=== PATIENT | male | born 1975 | race Caucasian/White ===

== ENCOUNTER 2023-05-14 07:31 | Emergency (ER) | payer MEDICARE, SELFPAY ==
[2023-05-14 07:41] VITALS: BP 158/88; PULSE 120; O2SAT 95
--- NOTE | 2023-05-14 07:41 | ED.GENADULT ---
HPI - General Adult General Chief complaint: Psychiatric Symptoms Stated complaint: SEC 12 BY [employer] WALKING AROUND W/A [place] PER EMS Source: patient and EMS Mode of arrival: EMS Limitations: no limitations History of Present Illness HPI narrative: This is a 47-year-old male history of schizoaffective disorder presenting on a Section 12 with EMS and police, according to report from EMS and police patient was aggressive at home, he was walking around with a katana sword and hitting and punching things. He tells me he has just been depressed, he reports his around COVID time and since then he has been unwell. He lives at home with his 19 and 21-year-old son. He tells me feels safe at home no thoughts of hurting himself or other people. He states he was hospitalized as a young kid for psychiatric issues however never as an adult. Denies drugs, alcohol, tobacco. He denies taking any psychiatric meds. No medical complaints today. Related Data Allergies Allergy/AdvReac Type Severity Reaction Status Date / Time Unable to Assess Allergy Unverified 05/14/23 07:38 Review of Systems Review of Systems: Yes all other systems are reviewed and are negative [facility] Past Medical History Attestation statement: The following information was validated with the patient. Source: old records reviewed and nursing notes reviewed Social History Social History Smoked in Last 30 Days: No Use of substances other than those prescribed or required for medical reasons: No Advance Directives: No Physical Exam ED Vital Signs: Vital Signs - 24 hr 05/14/23 07:54 Temperature 98.2 F Pulse Rate 90 Respiratory Rate 18 Blood Pressure 133/83 Pulse Oximetry 99 Oxygen Delivery Method Room Air BMI result Body Mass Index 31.7 vss Appearance: Alert.? Oriented X3.? No acute distress.? Head: Normocephalic, atraumatic, no step-offs or deformities Eyes: Pupils equal, round and reactive to light.?? Neck: Normal inspection.? Neck supple.? CVS: Normal heart rate and rhythm.? Pulses normal.? Respiratory: No respiratory distress.? Breath sounds normal.? Abdomen: Soft and nontender.? Skin: Skin warm and dry.? Normal skin color.? Normal skin turgor.? Extremities: No lower extremity edema.? No calf ttp. 5/5 strength to bilateral upper and lower extremities Neuro: Oriented X 3.? No motor deficit.? No sensory deficit. CN 2-12 intact Course Reevaluation(s) Reevaluation #1: CBC unremarkable. Chemistry no acute findings requiring intervention. UA with no acute findings. HUERTA negative. Ethanol negative. At this time patient to be placed in observation to allow more time to be evaluated by behavioral health team. At time observation was started patient common cooperative no acute distress will continue to monitor Time: 09:23 Reevaluation #2: Patient will be an inpatient bedsearch Medical Decision Making Medical Decision Making [facility] Narrative: 0742 47-year-old male presents with aggressive behavior from home on a section 12 by police. Physical exam benign. History and physical exam concerning for schizoaffective disorder versus schizophrenia versus bipolar. Denies suicidal and homicidal ideation. Unlikely metabolic derangements. Plan at this time medical clearance evaluation by behavioral health team Differential Diagnosis Differential Diagnoses: The differential diagnosis associated with the presentation includes History and physical exam concerning for schizoaffective disorder versus schizophrenia versus bipolar. Denies suicidal and homicidal ideation. Unlikely metabolic derangements. Admission/Observation Consideration of admission/observation: Escalation of care including admission/observation considered Consult Healthcare Provider Management of the patient was discussed with: Behavioral Health Provider Lab Data [facility] Lab Attestation statement: I reviewed the patient's lab results. 05/14/23 08:34 05/14/23 08:34 Labs: Lab Results 05/14/23 05/14/23 05/14/23 Range/Units 08:26 08:34 12:49 WBC 9.4 (4.8-10.8) X10*3/uL RBC 4.89 (4.60-5.80) X10*6/uL Hgb 14.8 (14.0-18.0) g/dl Hct 42.3 (42.0-52.0) % MCV 86.5 (80.0-98.0) fL MCH 30.3 (27.0-33.0) pg MCHC 35.0 (31.0-36.0) g/dl RDW 12.5 (11.0-16.0) % Plt Count 236 (160-400) X10*3/uL MPV 9.7 (9.4-12.4) fL Immature Gran % (Auto) 0.4 (0.0-0.4) % Neut % (Auto) 44.8 L (45-73) % Lymph % (Auto) 32.5 (20-40) % Polk % (Auto) 10.2 (2-11) % Eos % (Auto) 10.4 H (0-4) % Baso % (Auto) 1.7 (0-2) % Lymph # (Auto) 3.1 (1.2-4.9) X10*3/uL Polk # (Auto) 1.0 (0.1-1.2) X10*3/uL Eos # (Auto) 1.0 H (0.0-0.4) X10*3/uL Baso # (Auto) 0.2 (0.0-0.2) X10*3/uL Abs Immat Gran (auto) 0.04 H (0.00-0.03) X10*3/uL Absolute Neuts (auto) 4.2 (2.0-8.3) x10*3/uL Absolute Nucleated RBC 0.000 (0.0-0.012) X10*3/uL Nucleated RBC % (auto) 0.0 (0.0-0.2) /100WBC Sodium 140 (135-145) mmol/L Potassium 3.3 (3.3-5.1) mmol/L Chloride 105 (96-108) mmol/L Carbon Dioxide 29 (22-29) mmol/L Anion Gap 9 L (12-20) BUN 14 (9-16) mg/dL Creatinine 0.85 (0.5-1.4) mg/dL Estim Creat Clear Calc 142.0 Estimated GFR > 60 Random Glucose 97 (60-115) mg/dL Calcium 9.0 (8.4-10.2) mg/dL Magnesium 2.0 (1.6-2.6) mg/dL Total Bilirubin 0.4 (0.0-1.0) mg/dL AST 15 (5-37) U/L ALT 11 (0-40) U/L Alkaline Phosphatase 79 (39-117) U/L Total Protein 6.9 (6.5-8.0) g/dL Albumin 4.2 (3.5-5.0) g/dL Urine Color Yellow Urine Appearance Clear Urine pH 5.0 (5.0-9.0) Ur Specific Eclectic >= 1.030 H (1.005-1.025) Urine Protein Negative (Neg-Trace) mg/dL Urine Glucose (UA) Negative (Negative) mg/dL Urine Ketones Trace (Negative) mg/dL Urine Blood Negative (Negative) Urine Nitrite Negative (Negative) Ur Leukocyte Esterase Negative (Negative) Urine Opiates Screen Not Detected (Not Detect) Urine Fentanyl Screen Not Detected (Not Detect) Ur Barbiturates Screen Not Detected (Not Detect) Ur Phencyclidine Scrn Not Detected (Not Detect) Ur Amphetamines Screen Not Detected (Not Detect) U Benzodiazepines Scrn Not Detected (Not Detect) Urine Cocaine Screen Not Detected (Not Detect) U Marijuana (THC) Screen Not Detected (Not Detect) Ethyl Alcohol < 10 mg/dL COVID-19 (LUNA) Negative (Negative) COVID-19 Clin Com See Note Independent Historian Clinical information obtained from an independent historian. History obtained from or confirmed by: EMS and Other (Police ) External Record Review No previous hx Chronic Conditions Patient?s care impacted by: Other (Schizoaffective disorder.) Social Determinants Patient?s care significantly limited by Social Determinants of Health including: Problems related to primary support group ( ) and Other Social Determinant of Health Critical Care Time Critical Care Time Critical Care Time: No Discharge Plan Discharge Clinical Impression: Acute psychosis Patient Disposition: Still a Patient
[2023-05-14 07:54] VITALS: BP 133/83; PULSE 90; RESP 18; TEMP 36.8; O2SAT 99; BMI 31.7
[2023-05-14 08:40] LABS: MANUAL DIFF FLAG NO
[2023-05-14 08:42] LABS: Basophils Absolute Auto 0.2 X10*3/uL (0.0-0.2); Basophils Percent Auto 1.7 % (0-2); Eosinophils Percent Auto 10.4 % (0-4); Hematocrit 42.3 % (42.0-52.0); Hemoglobin 14.8 g/dl (14.0-18.0); Imm Gran Abs Auto 0.04 X10*3/uL (0.00-0.03); Imm Gran Pct Auto 0.4 % (0.0-0.4); Lymphocytes Absolute Auto 3.1 X10*3/uL (1.2-4.9); Lymphocytes Percent Auto 32.5 % (20-40); Mean Corpuscular Hemoglobin 30.3 pg (27.0-33.0); Mean Corpuscular Volume 86.5 fL (80.0-98.0); Mean Platelet Volume 9.7 fL (9.4-12.4); Monocytes Percent Auto 10.2 % (2-11); Neutrophils Absolute Auto 4.2 x10*3/uL (2.0-8.3); Neutrophils Percent Auto 44.8 % (45-73); Platelet Count 236 X10*3/uL (160-400); Red Blood Count 4.89 X10*6/uL (4.60-5.80); Red Cell Distribution Width 12.5 % (11.0-16.0); White Blood Count 9.4 X10*3/uL (4.8-10.8)
[2023-05-14 08:44] LABS: Appearance Urine Clear; Color Urine Yellow; Glucose Urine UA Negative (Negative); Leukocyte Esterase Urine Negative (Negative); Nitrite Urine Negative (Negative); Specific Gravity - Urine >= 1.030 (1.005-1.025); Urine Blood Negative (Negative); Urine Ketones Trace mg/dL (Negative); Urine Protein Negative (Neg-Trace)
[2023-05-14 08:50] LABS: Amphetamine Screen Urine Not Detected (Not Detect); Barbiturates, Urine Not Detected (Not Detect); Benzodiazepines Screen Urine Not Detected (Not Detect); Cannabinoid Screen Urine Not Detected (Not Detect); Cocaine Screen Urine Not Detected (Not Detect); Fentanyl, urine Not Detected (Not Detect); Opiate Screen Urine Not Detected (Not Detect); Phencyclidine Screen Urine Not Detected (Not Detect)
[2023-05-14 09:02] LABS: Alanine Aminotransferase 11 U/L (0-40); Albumin Level 4.2 g/dL (3.5-5.0); Alkaline Phosphatase 79 U/L (39-117); Anion Gap 9 (12-20); Aspartate Amino Transferase 15 U/L (5-37); Bilirubin Total 0.4 mg/dL (0.0-1.0); Blood Urea Nitrogen 14 mg/dL (9-16); Carbon Dioxide 29 mmol/L (22-29); Chloride 105 mmol/L (96-108); Estimated Glomerular Filt Rate > 60; Ethanol < 10 mg/dL; Glucose Random 97 mg/dL (60-115); Potassium 3.3 mmol/L (3.3-5.1); Sodium 140 mmol/L (135-145); Total Protein 6.9 g/dL (6.5-8.0)
--- NOTE | 2023-05-14 10:26 | PC.NURSE ---
PT IS BEING SEE BY CARE TEAM, PT AWARE OF PLAN OF CARE.
[2023-05-14 13:09] LABS: COVID-19 Test Negative (Negative); IDNOW Serial# 152EDE1D
--- NOTE | 2023-05-14 13:38 | MHC.CARE ---
Patient evaluated by the CARE Team and will need inpatient psychiatric treatment, will remain in the ED until a placement is secured. ED provider, CONCEPCION Santos updated and in agreement with plan of care.
[2023-05-14 13:55] VITALS: RESP 18
--- NOTE | 2023-05-14 17:42 | PC.NURSE ---
Assumed care of patient at 1500, patient resting in room, no apparent distress, ambulatory out of room at time with steady gait. Pt is extremely pleasant, calm and cooperative, offers no complaints to this RN at this time. Continue plan of care for inpt bedsearch
--- NOTE | 2023-05-15 00:50 | PC.NURSE ---
patient appears to be primarily self care, withdrawn, not spontaneous in interaction with peers or staff. [atient appears in no distress.
[2023-05-15 01:09] VITALS: BP 117/76; PULSE 71; RESP 17; TEMP 36.4; O2SAT 100
--- NOTE | 2023-05-15 06:56 | PC.NURSE ---
Assumed care of patient at 0700, patient appears to be sleeping, respirations even and unlabored, no apparent distress. Continue plan of care for inpt bedsearch
[2023-05-15 09:51] VITALS: BP 124/78; PULSE 69; RESP 19; TEMP 36.7; O2SAT 98
--- NOTE | 2023-05-15 10:15 | MHC.CARE ---
Patient has been accepted to [facility] for today 05/15/23. Address is [address] [place] [address] Baylee Rosario. ETA is 4pm
--- NOTE | 2023-05-15 12:03 | PC.NURSE ---
Report called to juan Crowe aware of plan of care
== END 2023-05-15 15:50 ==
PROVIDERS: Physician Assistant; Emergency Provider Emergency Medicine
DX: F23 Brief psychotic disorder (principal); F25.9 Schizoaffective disorder, unspecified; Z11.52 Encounter for screening for COVID-19
CPT/HCPCS: 36415; 80053; 80307; 81003; 83735; 85025; 87635; 99285; S9485